=== PATIENT | male | born 1950 | race Caucasian/White ===

== ENCOUNTER 2019-02-18 18:54 | Emergency (ER) | payer MEDICARE ==
--- NOTE | 2019-02-18 19:54 | ED Physician Documentation ---
PD HPI [facility]OCAL NEURO - Stated complaint Stated Complaint: HEAD PRESSURE - Chief complaint Chief Complaint: Neuro - History obtained from History obtained from: Patient - History of Present Illness Timing - onset: Today (For the last few days he is noticed a metallic taste in his mouth. Today he had a gradual onset headache over about an hour and a half. Bitemporal and much better after Tylenol. He is not a headachy tigist, so it is the worst headache of his life although he is not in much pain right now. Weighing heavily on his mind is that his of brain cancer and his friend had an aneurysm that presented with similar symptoms.) Review of Systems Constitutional: denies: Fever, Chills Nose: denies: Rhinorrhea / runny nose, Congestion Cardiac: denies: Chest pain / pressure, Palpitations Respiratory: denies: Dyspnea PD PAST MEDICAL HISTORY - Past Surgical History Past Surgical History: No - Present Medications Home Medications: Ambulatory Orders Medication Instructions Recorded Confirmed Hydrocodone/Acetaminophen 1 - 2 tab PO Q4-6H PRN #15 tablet 11/11/13 [Hydrocodon-Acetaminophen 5-325] - Allergies Allergies/Adverse Reactions: Allergies Allergy/AdvReac Type Severity Reaction Status Date / Time No Known Drug Allergies Allergy Verified 02/18/19 19:17 - Social History Does the pt smoke?: No Smoking Status: Never smoker Does the pt drink ETOH?: Yes Does the pt have substance abuse?: No - Immunizations Immunizations are current?: No Immunizations: TDAP >10years/unknown - POLST Patient has POLST: No PD ED PE NORMAL - Vitals Vital signs reviewed: Yes - General General: Alert and oriented X 3, No acute distress - HEENT HEENT: PERRL, EOMI - Neck Neck: Supple, no meningeal sign, No bony TTP - Cardiac Cardiac: RRR, No murmur - Respiratory Respiratory: No respiratory distress, Clear bilaterally - Abdomen Abdomen: Non tender - Derm Derm: No rash - Neuro Neuro: Alert and oriented X 3, No motor deficit, No sensory deficit, Normal speech Eye Opening: Spontaneous Motor: Obeys Commands Verbal: Oriented GCS Score: 15 Results - Vitals Vitals: Vital Signs - 24 hr 02/18/19 02/18/19 02/18/19 19:14 20:05 20:34 Temperature 36.2 C L Heart Rate 87 70 72 Respiratory 18 17 15 Rate Blood Pressure 175/115 H 148/96 H 132/94 H O2 Saturation 98 96 95 02/18/19 22:00 Temperature Heart Rate 60 Respiratory 16 Rate Blood Pressure 138/93 H O2 Saturation 95 Oxygen O2 Source Room air - Labs Labs: Laboratory Tests 02/18/19 02/18/19 02/18/19 20:09 20:09 20:09 WBC 8.8 RBC 5.22 Hgb 16.3 Hct 46.8 MCV 89.7 MCH 31.2 H MCHC 34.8 RDW 11.8 L Plt Count 170 MPV 11.5 H Neut # (Auto) 7.2 H Lymph # (Auto) 0.9 L Mcmullen # (Auto) 0.5 Eos # (Auto) 0.1 Baso # (Auto) 0.1 Absolute Nucleated RBC 0.00 Nucleated RBC % 0.0 ESR 1 Sodium 141 Potassium 4.1 Chloride 106 Carbon Dioxide 28 Anion Gap 7.0 BUN 15 Creatinine 1.1 Estimated GFR (MDRD) 66 L Glucose 94 Calcium 9.2 Total Bilirubin 1.3 H AST 27 ALT 25 Alkaline Phosphatase 55 Total Protein 7.4 Albumin 4.3 Globulin 3.1 Albumin/Globulin Ratio 1.4 Lipase 25 - Rads (name of study) CT/CTA head Radiology: EMP read contemporaneously (neg) PD MEDICAL DECISION MAKING - ED course ED course: 68-year-old gentleman presents with acute concerning headache, his concerns are the same as mine, mass lesion or aneurysm, neither were present on CT angiography of his head. He was pretty much pain-free after Tylenol here. There is no evidence of meningitis clinically. Temporal arteritis was also considered but his sed rate is low. Departure - Departure Disposition: 01 Home, Self Care Clinical Impression: Headache Qualifiers: Headache type: unspecified Headache chronicity pattern: acute headache Intractability: not intractable Qualified Code(s): R51 - Headache Condition: Good Record reviewed to determine appropriate education?: Yes Instructions: ED Cephalgia Unspecified Comments: You were seen today for a headache, it was new and unusual for you. We were worried about a mass lesion or an aneurysm CAT scan of your head shows that neither of these are present and your headache is now better. Return for new or worsening symptoms, follow-up with your doctor for recheck regardless.
[2019-02-18] MEDS ORDERED: ACETAMINOPHEN 325 MG TABLET PO STA (19:55)
[2019-02-18 20:14] LABS: BASOPHILS # (AUTO) 0.1 10^3/uL (0.0-0.1); BASOPHILS % (AUTO) 0.8 %; EOSINOPHILS # (AUTO) 0.1 10^3/uL (0.0-0.7); EOSINOPHILS % (AUTO) 1.1 %; HGB - HEMOGLOBIN 16.3 g/dL (14.0-18.0); LYMPHOCYTES # (AUTO) 0.9 10^3/uL (1.5-3.5); LYMPHOCYTES % (AUTO) 10.2 %; MEAN CORPUSCULAR HEMOGLOBIN 31.2 pg (27.0-31.0); MEAN CORPUSCULAR HGB CONC 34.8 g/dL (32.0-36.0); MEAN CORPUSCULAR VOLUME 89.7 fL (80.0-94.0); MEAN PLATELET VOLUME 11.5 fL (7.4-11.4); MONOCYTES # (AUTO) 0.5 10^3/uL (0.0-1.0); MONOCYTES % (AUTO) 5.3 %; NEUTROPHILS # (AUTO) 7.2 10^3/uL (1.5-6.6); NEUTROPHILS % (AUTO) 81.7 %; PLT - PLATELET COUNT 170 10^3/uL (130-450); RED BLOOD COUNT 5.22 10^6/uL (4.70-6.10); RED CELL DISTRIBUTION WIDTH 11.8 % (12.0-15.0); WHITE BLOOD COUNT 8.8 x10^3/uL (4.8-10.8)
[2019-02-18] MEDS ORDERED: IOVERSOL 320 100 ML VIAL IVP ONE ×2 (20:16→21:48)
[2019-02-18 20:28] LABS: ALBUMIN 4.3 g/dL (3.2-5.5); ALBUMIN/GLOBULIN RATIO 1.4 (1.0-2.2); BILIRUBIN,TOTAL 1.3 mg/dL (0.2-1.0); CALCIUM 9.2 mg/dL (8.5-10.3); CREATININE 1.1 mg/dL (0.6-1.2); TOTAL PROTEIN 7.4 g/dL (6.7-8.2)
--- NOTE | 2019-02-18 22:18 | CT Report ---
Reason: headache Procedure Date: 02/18/2019 Accession Number: [id number] / [id number] Procedure: CT - ANGIO HEAD W/WO CPT Code: FULL RESULT: EXAM: CT ANGIOGRAM HEAD. CT SCAN OF THE HEAD WITHOUT AND WITH CONTRAST. EXAM DATE: 02/18/2019 09:36 PM CLINICAL HISTORY: Headache. COMPARISON: None. TECHNIQUE: - CT Scan Head: Using a multidetector scanner, axial images were acquired from the foramen magnum to the skull vertex prior to and following contrast administration. - CT Angiogram: Using a multidetector scanner, high-resolution axial images were acquired from the skull base through vertex following rapid infusion of intravenous contrast. Reformats: Multiplanar MIP reformats were reconstructed. Nascet criteria used for stenosis measurement. IV Contrast: OPTI 320 80ML. In accordance with CT protocol optimization, one or more of the following dose reduction techniques were utilized for this exam: automated exposure control, adjustment of mA and/or KV based on patient size, or use of iterative reconstructive technique. FINDINGS: NON-CONTRAST HEAD: Parenchyma: No intraparenchymal hemorrhage. No evidence of mass, midline shift, or CT findings of infarction. Noonan-white differentiation is distinct. Extraaxial Spaces: Normal for age. No subdural or epidural collections identified. Ventricles: There is mild generalized cerebral volume loss, in keeping with the patient's age. Sinuses and orbits: A moderate-sized mucous retention cyst is present in the right maxillary sinus. The orbits and mastoid sinuses are unremarkable. Bones: No evidence of fracture or calvarial defect. POST-CONTRAST HEAD: No abnormal enhancement. There is normal contrast opacification in the dural venous sinuses. CT ANGIOGRAM HEAD: The internal carotid arteries are patent from the superior cervical to the supraclinoid portions. Calcified plaque is present in the bilateral carotid siphons but no high-grade stenosis is seen. The bilateral A1, A2, M1, M2 segments are patent. 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 A normal caliber anterior communicating artery is present. 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 The left V4 segment is patent. A left AICA/PICA variant is present. The basilar artery is widely patent throughout its course to the terminus. There is normal contrast opacification in the superior cerebellar and posterior cerebral arteries. There is essentially origin of the bilateral posterior cerebral arteries, a normal variant. IMPRESSION: 1. No acute intracranial process or abnormal brain parenchymal enhancement. 2. Patent dural venous sinuses. 3. Patent major intracranial arteries without evidence of aneurysm, AVM, or critical stenosis. RADIA
[2019-02-18 23:13] VITALS: BP 138/92
== END 2019-02-18 23:13 | disposition home or self-care (01) ==
LOC: ED 18:54
DX: R51 Headache (principal); R43.8 Other disturbances of smell and taste; J34.1 Cyst and mucocele of nose and nasal sinus
CPT/HCPCS: 36415; 70496; 80053; 83690; 85025; 85651; 99282; 99284; A9270; Q9967

== ENCOUNTER 2020-08-13 08:00 | Outpatient (CLI) | payer MEDICARE ==
[2020-08-13 12:23] LABS: ALBUMIN 4.2 g/dL (3.2-5.5); ALBUMIN/GLOBULIN RATIO 1.5 (1.0-2.2); ALKALINE PHOSPHATASE 66 IU/L (42-121); ALT ALANINE AMINOTRANSFERASE 19 IU/L (10-60); AST ASPARTATE AMINOTRANSFERASE 25 IU/L (10-42); BILIRUBIN,TOTAL 1.2 mg/dL (0.2-1.0); BUN - BLOOD UREA NITROGEN 13 mg/dL (6-20); CALCIUM 9.2 mg/dL (8.5-10.3); CARBON DIOXIDE - CO2 26 mmol/L (21-32); CHLORIDE 106 mmol/L (101-111); CHOL/HDL RATIO 3.4 (<5.0); CHOLESTEROL 166 mg/dL; CREATININE 1.3 mg/dL (0.6-1.2); GLUCOSE 98 mg/dL (70-100); HDL CHOLESTEROL 49 mg/dL; LDL CHOLESTEROL,CALCULATED 100 mg/dL; VLDL CHOLESTEROL 17 mg/dL
== END 2020-08-13 23:59 | disposition home or self-care (01) ==
LOC: LAB.WCP 08:00
PROVIDERS: ATTEND Physician Assistant
DX: Z00.00 Encounter for general adult medical examination without abnormal findings (principal); Z79.899 Other long term (current) drug therapy; I10 Essential (primary) hypertension; Z87.39 Personal history of other diseases of the musculoskeletal system and connective tissue; N40.0 Benign prostatic hyperplasia without lower urinary tract symptoms
CPT/HCPCS: 36415; 80053; 80061; 83721; 84153; 84443

== ENCOUNTER 2020-10-02 08:00 | Outpatient (CLI) | payer MEDICARE | END 2020-10-02 23:59 | disposition home or self-care (01) | LOC: LAB.N 08:00 | PROVIDERS: ATTEND Physician Assistant | DX: I48.91 Unspecified atrial fibrillation (principal); Z79.01 Long term (current) use of anticoagulants ==

== ENCOUNTER 2020-10-08 08:00 | Outpatient (CLI) | payer MEDICARE | END 2020-10-08 23:59 | disposition home or self-care (01) | LOC: LAB.F 08:00 | PROVIDERS: ATTEND Physician Assistant | DX: Z53.9 Procedure and treatment not carried out, unspecified reason (principal); Z79.01 Long term (current) use of anticoagulants; I48.91 Unspecified atrial fibrillation ==

== ENCOUNTER 2020-11-08 08:00 | Outpatient (CLI) | payer MEDICARE | END 2020-11-08 23:59 | disposition home or self-care (01) | LOC: LAB.N 08:00 | PROVIDERS: ATTEND Physician Assistant | DX: I48.91 Unspecified atrial fibrillation (principal); Z79.01 Long term (current) use of anticoagulants ==

== ENCOUNTER 2020-11-22 08:00 | Outpatient (CLI) | payer MEDICARE | END 2020-11-22 23:59 | disposition home or self-care (01) | LOC: LAB.N 08:00 | PROVIDERS: ATTEND Physician Assistant | DX: I48.91 Unspecified atrial fibrillation (principal); Z79.01 Long term (current) use of anticoagulants ==

== ENCOUNTER 2020-11-25 08:14 | Day surgery (SDC) | payer MEDICARE ==
[2020-11-25] MEDS ORDERED: LACTATED RINGERS 1,000 ML IV ONE (08:18)
--- NOTE | 2020-11-25 09:00 | ANESTHESIA ---
Pre-Anesthesia VS, & Labs - Diagnosis screening - Procedure colonoscopy Vital Signs: Temp Pulse Resp BP Pulse Ox 35.6 C L 90 16 131/98 H 100 11/25/20 08:22 11/25/20 08:22 11/25/20 08:22 11/25/20 08:22 11/25/20 08:22 Height: 6 ft 3 in Weight (kg): 110 kg Body Mass Index: 30.3 BMI Classification: Obese - NPO >8 hours - Lab Results Lab results reviewed: Yes Home Medications and Allergies Home Medications: Ambulatory Orders Losartan/Hydrochlorothiazide [Losartan-Hctz 100-12.5 mg Tab] 1 each PO DAILY 11/22/20 Warfarin [Coumadin] 5 mg PO 1400 11/22/20 Losartan/Hydrochlorothiazide [Losartan-Hctz 100-12.5 mg Tab] 1 each PO DAILY 11/22/20 Warfarin [Coumadin] 5 mg PO 1400 11/22/20 Allergies/Adverse Reactions: Allergies Allergy/AdvReac Type Severity Reaction Status Date / Time No Known Drug Allergies Allergy Verified 02/18/19 19:17 Anes History & Medical History - Anesthetic History Anesthesia Complications: reports: No previous complications Family history of Anesthesia Complications: Denies Family history of Malignant Hyperthermia: Denies - Medical History Cardiovascular: reports: Hypertension, Atrial fibrillation Pulmonary: reports: None Gastrointestinal: reports: None Urinary: reports: None Musculoskeletal: reports: Gout Endocrine/Autoimmune: reports: None Skin: reports: Other Smoking Status: Never smoker - Surgical History General: reports: Colonoscopy Eyes Ears Nose Throat (EENT): reports: Tonsil/Adenoidectomy Dermatologic: reports: Skin cancer surgery Exam General: Alert, Oriented x3, Cooperative Dental: WNL Neck Mobility: Normal Mallampati classification: II Thyromental Distance: 4-6 cm Respiratory: Lungs clear, Normal breath sounds, No respiratory distress Cardiovascular: Regular rate Neurological: Normal speech Mental/Cognitive Status: Alert/Oriented X3, Normal for patient Cognitive Status: Within normal limits Plan Anesthesia Type: Total IV Consent for Procedure(s) Verified and Reviewed: Yes Code Status: Attempt Resuscitation ASA classification: 3-Severe systemic disease Is this case an emergency?: No
[2020-11-25] MEDS ORDERED: MIDAZOLAM 2 MG/2 ML VIAL ONE (09:42)
[2020-11-25] MEDS ORDERED: fentaNYL 100 MCG/2 ML VIAL ONE (09:42)
[2020-11-25] MEDS ORDERED: PROPOFOL 200 MG/20 ML VIAL IVP ONE (09:43)
[2020-11-25] MEDS ORDERED: ePHEDrine 50 MG/ML VIAL IVP ONE (10:05)
[2020-11-25] MEDS ORDERED: LACTATED RINGERS 400 ML IV ONE (10:24)
--- NOTE | 2020-11-25 10:37 | ANESTHESIA POST OP EVALUATION ---
Anesthesia Post Eval - Post Anesthesia Eval Vitals: Last Vital Signs Temp 36 C L 11/25/20 10:24 Pulse 84 11/25/20 10:36 Resp 14 11/25/20 10:36 BP 98/62 11/25/20 10:36 Pulse Ox 96 11/25/20 10:36 CV Function Including HR & BP: Stable Pain Control: Satisfactory Nausea & Vomiting: Negative Mental Status: Baseline Respiratory Status: Airway Patent Hydration Status: Satisfactory Anesthesia Complications: None
[2020-11-25 10:54] VITALS: BP 101/79
== END 2020-11-25 08:15 | disposition home or self-care (01) ==
LOC: SDS 08:14
PROVIDERS: ATTEND Surgery
PROC: 0DBP8ZZ Excision of Rectum, Via Natural or Artificial Opening Endoscopic (ICD-10-PCS; 2020-11-25)
PROC: 0DBK8ZZ Excision of Ascending Colon, Via Natural or Artificial Opening Endoscopic (ICD-10-PCS; principal; 2020-11-25 09:15)
DX: Z12.11 Encounter for screening for malignant neoplasm of colon (principal); D12.8 Benign neoplasm of rectum; D12.2 Benign neoplasm of ascending colon; K64.8 Other hemorrhoids; I48.91 Unspecified atrial fibrillation; E66.9 Obesity, unspecified; Z68.30 Body mass index [BMI] 30.0-30.9, adult; Z79.01 Long term (current) use of anticoagulants
CPT/HCPCS: 45384; J7120

== ENCOUNTER 2020-12-04 08:00 | Outpatient (CLI) | payer MEDICARE | END 2020-12-04 23:59 | disposition home or self-care (01) | LOC: LAB.F 08:00 | PROVIDERS: ATTEND Physician Assistant | DX: I48.91 Unspecified atrial fibrillation (principal); Z79.01 Long term (current) use of anticoagulants ==

== ENCOUNTER 2020-12-20 08:00 | Outpatient (CLI) | payer MEDICARE | END 2020-12-20 23:59 | disposition home or self-care (01) | LOC: LAB.N 08:00 | PROVIDERS: ATTEND Physician Assistant | DX: Z79.01 Long term (current) use of anticoagulants (principal); I48.91 Unspecified atrial fibrillation ==

== ENCOUNTER 2020-12-30 08:00 | Outpatient (CLI) | payer MEDICARE | END 2020-12-30 23:59 | disposition home or self-care (01) | LOC: LAB.F 08:00 | PROVIDERS: ATTEND Physician Assistant | DX: I48.91 Unspecified atrial fibrillation (principal); Z79.01 Long term (current) use of anticoagulants ==

== ENCOUNTER 2021-01-08 08:00 | Outpatient (CLI) | payer MEDICARE | END 2021-01-08 23:59 | disposition home or self-care (01) | LOC: LAB.F 08:00 | PROVIDERS: ATTEND Physician Assistant | DX: Z79.01 Long term (current) use of anticoagulants (principal); I48.91 Unspecified atrial fibrillation ==